=== PATIENT | male | born 1990 | race Two or more races ===

== ENCOUNTER 2022-05-28 11:20 | Emergency (ER) | payer BC ==
[2022-05-28] MEDS ORDERED: Ondansetron 4 MG/2 ML SDV IVPUSH ONE (11:59)
[2022-05-28] MEDS ORDERED: Sodium Chloride 0.9% 10 ML Syringe FLUSH PRN (11:59)
[2022-05-28] MEDS ORDERED: Sodium Chloride 0.9% 1,000 ML IV ONE (11:59)
[2022-05-28] MEDS ORDERED: Sodium Chloride 0.9% 2.5 ML Syringe FLUSH PRN (11:59)
[2022-05-28] MEDS ORDERED: Alum Hydro/Mag Hydro/Simeth XS 15 ML, Metoclopramide 5 MG, Lidocaine 2% 5 ML PO ONE ×3 (12:50)
[2022-05-28] MEDS ORDERED: Metoclopramide Oral Soln 10 MG/10 ML UD Cup ONE (13:05)
[2022-05-28 13:10] LABS: CARBON DIOXIDE,CO2 25.2 mmol/L (21.0-32.0); POTASSIUM,K 4.1 mmol/L (3.5-5.1)
== END 2022-05-28 14:01 | disposition home or self-care (01) ==
LOC: MW.ED 11:20
DX: K52.9 Noninfective gastroenteritis and colitis, unspecified (principal); Z90.89 Acquired absence of other organs
CPT/HCPCS: 36415; 80053; 81001; 83690; 83735; 85025; 96361; 96374; 99284; A9270; J2405; J3490; J7030; 99283

== ENCOUNTER 2023-09-27 22:04 | Emergency (ER) | payer BC ==
[2023-09-27] MEDS: Lidocaine 1% 5 ML VIAL INJECT ONE (22:48)
[2023-09-27] MEDS: Diphtheria,Pertussis(Acell),Tetanus Vaccine 0.5 ML Syringe IM ONE (22:48)
== END 2023-09-28 00:14 | disposition home or self-care (01) ==
LOC: MW.ED 22:04
DX: S61.012A Laceration without foreign body of left thumb without damage to nail, initial encounter (principal); Z90.49 Acquired absence of other specified parts of digestive tract; Z23 Encounter for immunization; W25.XXXA Contact with sharp glass, initial encounter
CPT/HCPCS: 12001; 12002; 90471; 90715; 99282-25; 99283; J3490